=== PATIENT | male | born 1995 | race Caucasian/White ===

== ENCOUNTER 2019-09-22 23:06 | Emergency (ER) | payer MEDICAID ==
[~2019-09-22] VITALS: Ht 180.3 cm; Wt 73.0 kg
[2019-09-22] MEDS ORDERED: MIRT-91 MT (23:21)
[2019-09-22] MEDS ORDERED: ARIP15TA7 PO (23:21)
[2019-09-22] MEDS ORDERED: HALOPERIDOL LACTATE 5MG/ML VIAL IM STA (23:30)
[2019-09-23 00:10] LABS: BASOPHILS % 0.4 % (0.0-2.0); EOSINOPHILS % 0.7 % (0.0-5.0); HEMATOCRIT. 38.3 % (42.0-52.0); HEMOGLOBIN. 13.1 g/dL (14.0-18.0); MEAN CORPUSCULAR HEMOGLOBIN 30.7 pg (28.0-32.0); MEAN CORPUSCULAR VOLUME 89.7 fL (80.0-94.0); MEAN PLATELET VOLUME 9.2 fl (7.4-10.4); MONOCYTES % 5.6 % (2.0-8.0); NEUTROPHILS % 80.3 % (40.0-76.0); PLATELET 279 x1000/uL (130-400); RED BLOOD CELL COUNT 4.27 mill/uL (4.7-6.1); RED CELL DISTRIBUTION WIDTH 12.9 % (11.6-14.6)
[2019-09-23 00:12] LABS: CHLORIDE 107 mEq/L (98-107)
[2019-09-23 00:18] LABS: ETHANOL BLOOD < 10 mg/dL
[2019-09-23 00:36] LABS: CLARITY URINE CLEAR (CLEAR); COLOR URINE YELLOW (YELLOW); KETONES URINE NEGATIVE (NEGATIVE); LEUKOCYTE ESTERASE URINE NEGATIVE (NEGATIVE); NITRITE URINE NEGATIVE (NEGATIVE); OCCULT BLOOD URINE NEGATIVE (NEGATIVE); PROTEIN URINE NEGATIVE (NEGATIVE); SPECIFIC GRAVITY URINE 1.012 (1.005-1.030); UROBILINOGEN URINE 0.2 E.U./dL (0.2-1.0)
[2019-09-23 00:45] LABS: *AMPHETAMINES SCREEN URINE NEGATIVE (NEGATIVE); *BARBITURATES SCREEN URINE NEGATIVE (NEGATIVE); *BENZODIAZEPINES SCREEN URINE NEGATIVE (NEGATIVE); *COCAINE SCREEN URINE NEGATIVE (NEGATIVE)
[2019-09-23] MEDS ORDERED: LORAZEPAM 2MG/ML CPJ IM ONE ×3 (00:45→14:15)
[2019-09-23 00:46] LABS: CANNABINOID URINE SCREEN NEGATIVE (NEGATIVE); METHADONE URINE SCREEN NEGATIVE (NEGATIVE); OPIATES URINE SCREEN NEGATIVE (NEGATIVE); PHENCYCLIDINE URINE SCREEN NEGATIVE (NEGATIVE)
[2019-09-23] MEDS ORDERED: HALOPERIDOL LACTATE 5MG/ML VIAL IM ONE ×2 (01:15→21:00)
[2019-09-23] MEDS ORDERED: SODIUM CHLORIDE 0.9% 1,000 ML IV ONE (02:00)
[2019-09-23] MEDS ORDERED: HALOPERIDOL 5MG TABLET PO ONE (04:00)
[2019-09-23] MEDS ORDERED: ARIPIPRAZOLE 10MG TABLET PO ONE (19:30)
[2019-09-23] MEDS ORDERED: DIPHENHYDRAMINE 50MG/ML VIAL IM ONE (21:00)
[2019-09-24] MEDS ORDERED: LORAZEPAM 1MG TABLET PO ONE (19:15)
[2019-09-25] MEDS ORDERED: LORAZEPAM 1MG TABLET PO ONE (20:15)
[2019-09-25] MEDS ORDERED: OLANZAPINE 10 MG/VIAL IM ONE (22:00)
[2019-09-26] MEDS ORDERED: LORAZEPAM 1MG TABLET PO ONE ×2 (03:45→14:30)
[2019-09-26] MEDS ORDERED: LORAZEPAM 1MG TABLET PO NR (04:15)
[2019-09-27] MEDS: QUETIAPINE FUMARATE 50MG TABLET PO SCH (02:13)
[2019-09-27] MEDS ORDERED: LORAZEPAM 2MG/ML CPJ IM ONE (10:45)
[2019-09-27] MEDS ORDERED: OLANZAPINE 10 MG/VIAL IM ONE (13:45)
[2019-09-27] MEDS: QUETIAPINE FUMARATE 25MG TABLET PO SCH (20:18)
[2019-09-27] MEDS ORDERED: ARIPIPRAZOLE 10MG TABLET PO ONE (22:45)
[2019-09-27] MEDS ORDERED: MIRTAZAPINE 30MG TABLET PO SCH (22:47)
[2019-09-27] MEDS ORDERED: ARIPIPRAZOLE 5MG TABLET PO NR (22:53)
[2019-09-27] MEDS ORDERED: MIRTAZAPINE 15MG TABLET PO NR (23:00)
[2019-09-28] MEDS: QUETIAPINE FUMARATE 50MG TABLET PO SCH (02:33)
[2019-09-28] MEDS ORDERED: HALOPERIDOL 5MG TABLET PO ONE (05:30)
[2019-09-28] MEDS ORDERED: LORAZEPAM 2MG/ML CPJ IM ONE (20:30)
[2019-09-28] MEDS: QUETIAPINE FUMARATE 25MG TABLET PO SCH (23:39)
[2019-09-29] MEDS ORDERED: ZIPRASIDONE MESYLATE 20MG/VIAL IM ONE (02:45)
[2019-09-29] MEDS ORDERED: ARIPIPRAZOLE 10MG TABLET PO ONE (19:00)
[2019-09-29] MEDS ORDERED: ARIPIPRAZOLE 5MG TABLET PO NR (19:30)
[2019-09-29] MEDS: QUETIAPINE FUMARATE 25MG TABLET PO SCH (20:30)
[2019-09-29] MEDS ORDERED: LORAZEPAM 2MG/ML CPJ IM ONE (21:00)
[2019-09-29] MEDS ORDERED: MIRTAZAPINE 30MG TABLET PO SCH (21:00)
[2019-09-29] MEDS ORDERED: MIRTAZAPINE 15MG TABLET PO SCH (21:00)
[2019-09-29] MEDS: HYDROCORTISONE 1% OINT 28.35GM TOP SCH (21:07)
[2019-09-30] MEDS ORDERED: LORAZEPAM 0.5MG TABLET PO SCH (08:30)
[2019-09-30] MEDS ORDERED: QUETIAPINE FUMARATE 25MG TABLET PO SCH ×2 (08:30→15:15)
[2019-09-30 16:00] VITALS: BP 124/72
[2019-09-30] MEDS: HYDROCORTISONE 1% OINT 28.35GM TOP SCH (16:56)
[2019-09-30] MEDS: QUETIAPINE FUMARATE 25MG TABLET PO SCH (16:57)
== END 2019-09-30 16:09 ==
LOC: ER 23:06
DX: R45.851 Suicidal ideations (principal); F23 Brief psychotic disorder; R00.0 Tachycardia, unspecified; R45.1 Restlessness and agitation
CPT/HCPCS: 36415; 80053; 80305; 80320; 81003; 85025; 96372; 99285; J1200; J1630; J2060; J3486; J7030; G0480

== ENCOUNTER 2019-10-08 03:36 | Emergency (ER) | payer MEDICAID ==
[~2019-10-08] VITALS: Ht 180.3 cm; Wt 75.0 kg
[~2019-10-08 03:36] MED LIST: ARIP15TA7 PO; MIRT-91 MT
[2019-10-08 04:17] LABS: CLARITY URINE CLEAR (CLEAR); COLOR URINE YELLOW (YELLOW); KETONES URINE NEGATIVE (NEGATIVE); LEUKOCYTE ESTERASE URINE NEGATIVE (NEGATIVE); NITRITE URINE NEGATIVE (NEGATIVE); OCCULT BLOOD URINE NEGATIVE (NEGATIVE); PROTEIN URINE NEGATIVE (NEGATIVE); SPECIFIC GRAVITY URINE 1.002 (1.005-1.030); UROBILINOGEN URINE 0.2 E.U./dL (0.2-1.0)
[2019-10-08 04:26] LABS: *BARBITURATES SCREEN URINE NEGATIVE (NEGATIVE); *BENZODIAZEPINES SCREEN URINE NEGATIVE (NEGATIVE); *COCAINE SCREEN URINE NEGATIVE (NEGATIVE); METHADONE URINE SCREEN NEGATIVE (NEGATIVE); OPIATES URINE SCREEN NEGATIVE (NEGATIVE)
[2019-10-08 04:27] LABS: *AMPHETAMINES SCREEN URINE NEGATIVE (NEGATIVE); CANNABINOID URINE SCREEN NEGATIVE (NEGATIVE); PHENCYCLIDINE URINE SCREEN NEGATIVE (NEGATIVE)
[2019-10-08 04:34] LABS: CHLORIDE 105 mEq/L (98-107)
[2019-10-08 04:39] LABS: ETHANOL BLOOD < 10 mg/dL
[2019-10-08 04:47] LABS: BASOPHILS % 0.4 % (0.0-2.0); EOSINOPHILS % 0.3 % (0.0-5.0); HEMATOCRIT. 40.6 % (42.0-52.0); HEMOGLOBIN. 13.8 g/dL (14.0-18.0); LYMPHOCYTES % 11.1 % (20.0-50.0); MEAN CORPUSCULAR HEMOGLOBIN 30.2 pg (28.0-32.0); MEAN PLATELET VOLUME 9.7 fl (7.4-10.4); MONOCYTES % 5.1 % (2.0-8.0); NEUTROPHILS % 83.1 % (40.0-76.0); PLATELET 267 x1000/uL (130-400); RED BLOOD CELL COUNT 4.57 mill/uL (4.7-6.1); RED CELL DISTRIBUTION WIDTH 12.8 % (11.6-14.6)
[2019-10-08] MEDS ORDERED: ZIPRASIDONE MESYLATE 20MG/VIAL IM ONE (05:00)
[2019-10-08] MEDS ORDERED: LORAZEPAM 1MG TABLET PO ONE (06:45)
[2019-10-08] MEDS ORDERED: PROPRANOLOL HCL 10MG TABLET PO ONE (06:45)
[2019-10-08 17:43] VITALS: BP 128/72
== END 2019-10-08 17:58 | disposition home or self-care (01) ==
LOC: ER 04:18
DX: R45.851 Suicidal ideations (principal); F31.9 Bipolar disorder, unspecified; F41.9 Anxiety disorder, unspecified; F20.9 Schizophrenia, unspecified
CPT/HCPCS: 36415; 80053; 80305; 80320; 81003; 85025; 96372; 99283; J3486; Z7610; G0480